=== PATIENT | female | born 1940 | race Caucasian/White ===

== ENCOUNTER → 2021-09-04 | Outpatient (CLI) | payer MEDICARE, OTHER ==
[~2021-09-04] MED LIST: ASPIRIN E.C. 8181 MG PO; BETAPACE 80MG80 MG PO; DIABETA 5MG5 MG/TAB PO; ELIQUIS 2.5 PO; ELIQUIS 5MG PO; GLUCOVANCE 5 MG1 TAB PO; IMDUR 60MG60 MG/TAB PO; LIPITOR 40MG TA40 MG PO; LOPRESSOR 550 MG/TAB PO; PLAVIX 75MG TAB75 MG PO; PRINIVIL10 MG PO; RANEXA 500MG T500 MG PO
== END ==
LOC: COL.VAS 09:10
DX: I74.3 Embolism and thrombosis of arteries of the lower extremities (principal)